=== PATIENT | male | born 1980 | race Caucasian/White ===

== ENCOUNTER 2022-04-18 03:50 | Emergency (ER) | payer OTHER ==
[2022-04-18] MEDS ORDERED: Ondansetron 4 MG Tab.DIS PO ONE (04:15)
[2022-04-18] MEDS ORDERED: Morphine 4 MG/ML VIAL IVPUSH ONE (04:43)
[2022-04-18] MEDS ORDERED: Morphine 2 MG/ML SYRINGE IM ONE (04:45)
[2022-04-18] MEDS ORDERED: Morphine 4 MG/ML VIAL ONE (04:53)
[2022-04-18] MEDS ORDERED: Loperamide 2 MG Cap PO ONE (05:09)
[2022-04-18] MEDS ORDERED: Ciprofloxacin 500 MG Tab PO ONE (05:09)
[2022-04-18] MEDS ORDERED: metroNIDAZOLE 500 MG Tab PO ONE (05:09)
[2022-04-18] MEDS ORDERED: Loperamide 2 MG Cap ONE ×2 (05:28→05:30)
[2022-04-18] MEDS ORDERED: metroNIDAZOLE 500 MG Tab ONE ×2 (05:29→05:30)
[2022-04-18] MEDS ORDERED: Ciprofloxacin 500 MG Tab ONE (05:30)
== END 2022-04-18 05:35 | disposition home or self-care (01) ==
LOC: LB.ED 03:50
DX: K52.9 Noninfective gastroenteritis and colitis, unspecified (principal); Z88.2 Allergy status to sulfonamides; Z98.890 Other specified postprocedural states
CPT/HCPCS: 36415; 74176; 80053; 83690; 85027; 96372; 99284; A9270; J2270; Q0162